=== PATIENT | female | born 2000 | race Hispanic/Latino ===

== ENCOUNTER 2020-02-28 21:17 | Emergency (ER) | payer OTHER ==
[~2020-02-28] VITALS: Ht 165.1 cm; Wt 59.1 kg
[2020-02-28] MEDS ORDERED: TETRACAINE 0.5% OPHTH SOLN 4ML OU ONE (21:45)
[2020-02-28] MEDS ORDERED: IRRIGATION OPHTH SOLN (EYE WASH) 120ML OU ONE (21:45)
[2020-02-28] MEDS ORDERED: predniSONE 20 MG TAB PO ONE (22:00)
[2020-02-28] MEDS ORDERED: diphenhydrAMINE 50MG CAP PO ONE (22:00)
[2020-02-28 22:41] VITALS: BP 134/77
== END 2020-02-28 22:49 | disposition home or self-care (01) ==
LOC: M ED 21:17
DX: T26.61XA Corrosion of cornea and conjunctival sac, right eye, initial encounter (principal); T26.62XA Corrosion of cornea and conjunctival sac, left eye, initial encounter; Y99.1 Military activity; X58.XXXA Exposure to other specified factors, initial encounter; Y93.89 Activity, other specified; Y92.138 Other place on military base as the place of occurrence of the external cause; T65.91XA Toxic effect of unspecified substance, accidental (unintentional), initial encounter

== ENCOUNTER 2020-05-24 05:43 | Emergency (ER) | payer OTHER ==
[~2020-05-24] VITALS: Ht 165.1 cm; Wt 59.1 kg
[2020-05-24 05:43] VITALS: BP 121/73
[2020-05-24] MEDS ORDERED: KETOROLAC TROMETHAMINE 10 MG TAB PO ONE (06:15)
[2020-05-24 06:51] LABS: BASO % 0.4 % (0.0-1.0); EOS # 0.1 10^3/uL (0.0-0.5); HEMATOCRIT 38.5 % (36.0-47.0); HEMOGLOBIN 12.9 g/dl (12.0-15.5); LYMPH # 1.8 10^3/uL (1.5-5.0); MEAN CORPUSCULAR HEMOGLOBIN 29.9 pg (27.0-33.0); MEAN CORPUSCULAR HGB CONC 33.5 g/dl (32.0-36.5); MEAN CORPUSCULAR VOLUME 89.3 fl (80.0-96.0); MONO # 0.5 10^3/uL (0.0-0.8); NEUTROPHILS # 2.7 10^3/uL (1.5-8.5); NEUTROPHILS % 52.2 % (36.0-66.0); PLATELET COUNT, AUTOMATED 241 10^3/uL (150-450); RED BLOOD COUNT 4.31 10^6/uL (4.00-5.40); WHITE BLOOD COUNT 5.1 10^3/uL (4.0-10.0)
[2020-05-24] MEDS ORDERED: AZO-95TA3 PO (06:59)
[2020-05-24] MEDS ORDERED: CIPR-249 PO (06:59)
== END 2020-05-24 07:04 | disposition home or self-care (01) ==
LOC: M ED 05:43
DX: N39.0 Urinary tract infection, site not specified (principal)

== ENCOUNTER 2020-06-24 05:30 | Emergency (ER) | payer OTHER ==
[~2020-06-24] VITALS: Ht 165.1 cm; Wt 69.0 kg
[~2020-06-24 05:30] MED LIST: AZO-95TA3 PO; CIPR-249 PO
[2020-06-24] MEDS ORDERED: IBUP1TAB7 PO (05:44)
[2020-06-24] MEDS ORDERED: OXYC1TAB23 PO (05:44)
[2020-06-24 06:43] VITALS: BP 124/69
--- NOTE | 2020-06-24 20:50 | ECGEPIP ---
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
== END 2020-06-24 07:10 | disposition home or self-care (01) ==
LOC: M ED 05:30
DX: R07.9 Chest pain, unspecified (principal); Z79.891 Long term (current) use of opiate analgesic; Z79.899 Other long term (current) drug therapy

== ENCOUNTER 2020-11-25 17:09 | Emergency (ER) | payer OTHER ==
[~2020-11-25] VITALS: Ht 165.1 cm; Wt 63.6 kg
[~2020-11-25 17:09] MED LIST changes: +IBUP1TAB7 PO; +OXYC1TAB23 PO
[2020-11-25 17:17] VITALS: BP 128/74
== END 2020-11-25 18:06 | disposition home or self-care (01) ==
LOC: M ED 17:09
DX: S91.011A Laceration without foreign body, right ankle, initial encounter (principal); W01.0XXA Fall on same level from slipping, tripping and stumbling without subsequent striking against object, initial encounter; Y92.830 Public park as the place of occurrence of the external cause

== ENCOUNTER 2020-12-13 10:38 | Emergency (ER) | payer OTHER ==
[~2020-12-13] VITALS: Ht 162.6 cm; Wt 68.2 kg
[2020-12-13] MEDS ORDERED: COLA100C5 PO (10:55)
[2020-12-13 11:41] LABS: BASO % 0.6 % (0.0-1.0); EOS # 0.1 10^3/uL (0.0-0.5); EOS % 1.2 % (0.0-3.0); HEMATOCRIT 40.6 % (36.0-47.0); HEMOGLOBIN 13.4 g/dl (12.0-15.5); LYMPH % 30.3 % (24.0-44.0); MEAN CORPUSCULAR HEMOGLOBIN 29.2 pg (27.0-33.0); MEAN CORPUSCULAR VOLUME 88.5 fl (80.0-96.0); MONO # 0.4 10^3/uL (0.0-0.8); MONO % 5.8 % (2.0-8.0); NEUTROPHILS # 4.1 10^3/uL (1.5-8.5); NEUTROPHILS % 61.8 % (36.0-66.0); PLATELET COUNT, AUTOMATED 292 10^3/uL (150-450); RED BLOOD COUNT 4.59 10^6/uL (4.00-5.40); WHITE BLOOD COUNT 6.6 10^3/uL (4.0-10.0)
[2020-12-13] MEDS ORDERED: ISOVUE-370 76% 100ML VIAL As Ordered ONE (11:42)
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
[2020-12-13 12:42] VITALS: BP 121/59
--- NOTE | 2020-12-15 07:20 | ED PDOC ---
Post-Departure Follow-Up radiology report faxed to [facility] Filomena Basurto MD Dec 15, 2020 07:20
== END 2020-12-13 12:47 | disposition home or self-care (01) ==
LOC: M ED 10:38
DX: Z04.1 Encounter for examination and observation following transport accident (principal); V49.49XA Driver injured in collision with other motor vehicles in traffic accident, initial encounter; Y92.410 Unspecified street and highway as the place of occurrence of the external cause; M54.5 Low back pain; N83.202 Unspecified ovarian cyst, left side
CPT/HCPCS: 36415; 72131; 74177; 80047; 84702; 85025; 99284; Q9967

== ENCOUNTER 2021-01-07 05:10 | Emergency (ER) | payer OTHER ==
[~2021-01-07] VITALS: Ht 162.6 cm; Wt 68.7 kg
[~2021-01-07 05:10] MED LIST changes: +COLA100C5 PO
[2021-01-07 05:11] VITALS: BP 109/55
[2021-01-07] MEDS ORDERED: [UNRECOGNIZED DRUG - OTHER] OU (05:19)
[2021-01-07] MEDS ORDERED: PYRI1TAB5 PO (06:09)
[2021-01-07] MEDS ORDERED: MACR100C43 PO (06:09)
== END 2021-01-07 06:22 | disposition home or self-care (01) ==
LOC: M ED 05:10
DX: N30.91 Cystitis, unspecified with hematuria (principal)

== ENCOUNTER 2021-01-22 05:09 | Emergency (ER) | payer OTHER ==
[~2021-01-22] VITALS: Ht 162.6 cm; Wt 69.2 kg
[~2021-01-22 05:09] MED LIST changes: +MACR100C43 PO; +PYRI1TAB5 PO; +[UNRECOGNIZED DRUG - OTHER] OU
[2021-01-22 06:33] LABS: BASO % 0.7 % (0.0-1.0); EOS # 0.2 10^3/uL (0.0-0.5); EOS % 2.6 % (0.0-3.0); HEMATOCRIT 43.2 % (36.0-47.0); HEMOGLOBIN 14.2 g/dl (12.0-15.5); LYMPH # 2.2 10^3/uL (1.5-5.0); LYMPH % 38.8 % (24.0-44.0); MEAN CORPUSCULAR HEMOGLOBIN 29.6 pg (27.0-33.0); MEAN CORPUSCULAR HGB CONC 32.9 g/dl (32.0-36.5); MEAN CORPUSCULAR VOLUME 90.2 fl (80.0-96.0); MONO # 0.4 10^3/uL (0.0-0.8); MONO % 6.4 % (2.0-8.0); NEUTROPHILS # 2.9 10^3/uL (1.5-8.5); PLATELET COUNT, AUTOMATED 278 10^3/uL (150-450); RED BLOOD COUNT 4.79 10^6/uL (4.00-5.40); WHITE BLOOD COUNT 5.8 10^3/uL (4.0-10.0)
[2021-01-22 07:02] LABS: ALBUMIN 4.1 GM/DL (3.2-5.2); BILIRUBIN,DIRECT 0.1 MG/DL (0.0-0.2); BILIRUBIN,TOTAL 0.3 MG/DL (0.2-1.0); TOTAL PROTEIN 7.7 GM/DL (6.4-8.2)
[2021-01-22] MEDS ORDERED: ISOVUE-370 76% 100ML VIAL As Ordered ONE (08:06)
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
[2021-01-22] MEDS ORDERED: KETO10TAB PO (09:13)
[2021-01-22 09:20] VITALS: BP 152/91
== END 2021-01-22 09:35 | disposition home or self-care (01) ==
LOC: M ED 05:09
DX: N83.292 Other ovarian cyst, left side (principal)
CPT/HCPCS: 36415; 74177; 80047; 80076; 81001; 83690; 84702; 85025; 93041; 99284; Q9967